=== PATIENT | male | born 1970 | race Caucasian/White ===

== ENCOUNTER → 2019-10-14 14:26 | Outpatient (CLI) | payer OTHER, SELFPAY ==
[2019-10-14 16:09] LABS: Alanine Aminotransferase 78 IU/L (<50); Albumin 4.4 g/dL (3.5-5.0); Albumin Globulin Ratio 1.5 (1.0-2.8); Alkaline Phosphatase 81 U/L (38-126); Aspartate Aminotransferase 50 IU/L (17-59); Bilirubin Total 0.5 mg/dL (0.2-1.3); Bilirubin Unconjugated 0.4 mg/dL (0.0-1.1); Globulin 2.9 g/dL (1.7-4.1); HEMOLYSIS < 15 (0-50); Total Protein 7.3 g/dL (6.3-8.2)
[2019-10-14 16:40] LABS: Hepatitis B Surface Antigen NEGATIVE s/c (NEGATIVE)
[2019-10-14 17:13] LABS: HEMOLYSIS < 15 (0-50); Iron 103 ug/dL (49-181)
[2019-10-14 17:26] LABS: Percent Iron Saturation 28 % (20-50); Total Iron Binding Capacity 368 ug/dL (261-462); Transferrin 316 mg/dL (206-381)
[2019-10-16 15:25] LABS: Ceruloplasmin 24 mg/dL (18-36)
[2019-10-17 07:40] LABS: Alpha 1 Anti Trypsin 139 mg/dL (83-199)
[2019-10-17 10:37] LABS: Anti Mitochondrial ABY IGG < 20.1 Units (< 20.1)
[2019-10-17 14:15] LABS: Hepatitis A Antibody Total Reactive (Nonreactive); Hepatitis B Surf AB Imm QUANT 30 mIU/mL (> 9)
== END ==
PROVIDERS: Referring Provider Internal Medicine Gastroenterology; Visit Provider Internal Medicine Gastroenterology
DX: R74.0 Nonspecific elevation of levels of transaminase and lactic acid dehydrogenase [LDH] (principal)
CPT/HCPCS: 36415; 80076; 82103; 82390; 82728; 83516; 83540; 83550; 86255; 86706; 86708; 87340

== ENCOUNTER → 2020-05-30 08:56 | Outpatient (CLI) | payer OTHER, SELFPAY ==
[2020-05-31 20:41] LABS: COVID19 Sendout Not Detected (Not Detect)
== END ==
PROVIDERS: Referring Provider Internal Medicine Gastroenterology; Visit Provider Nurse Practitioner
DX: Z11.59 Encounter for screening for other viral diseases (principal)
CPT/HCPCS: 87635

== ENCOUNTER 2020-06-02 08:31 | Day surgery (SDC) | payer OTHER, SELFPAY ==
[2020-06-02] VITALS (7 sets, daily range): BP systolic 115–142; BP diastolic 82–94; PULSE 66–84; RESP 12–19; TEMP 36.3–36.9; O2SAT 93–98; BMI 31.4
--- NOTE | 2020-06-02 | PATH_ITS ---
[facility] Accession Number: [id number] . 01 Material submitted: . colon - ASCENDING COLON POLYP . 01 Clinical history: . SDC . 02 Diagnosis: Ascending Colon, Polyp, Biopsy: Tubular adenoma. [facility] 06/04/2020 1637 Local . 02 Electronically signed: . Patience Jones MD, Pathologist NPI- [id number] . 01 Gross description: . The specimen is received in formalin, labeled ascending colon polyp and consists of a 0.3 x 0.3 x 0.3 cm luis fragment of soft tissue, which is entirely submitted in cassette A1. ([id number]) /[facility] 06/03/2020 1518 Local . 02 Pathologist provided ICD-10: D12.2 . 02 CPT . 232609 Performed at: 01 [facility] [address] [id number] MD Clark Conley MD Phone: [phone] Performed at: 02 [facility] [address] [place], [place] [id number] MD Patience Jones MD Phone: [phone]
--- NOTE | 2020-06-02 07:54 | PM.HP.1 ---
History of Present Illness History of Present Illness Date Patient Seen: 06/02/20 Chief complaint: SDC Narrative: 50-year-old male who I had seen in October 2019 for reflux and rectal bleeding. He is here for colonoscopy to further evaluate his rectal bleeding. He is Patient History Medical History (Updated 06/02/20 @ 08:57 by Bev Sidhu RN) Anal fissure (Acute) Elevated ALT measurement (Acute) GERD (gastroesophageal reflux disease) (Acute) Hiatal hernia (Acute) History of back pain (Acute) Rectal bleeding (Acute) Surgical History (Updated 06/02/20 @ 07:23 by Bev Sidhu RN) H/O vasectomy (Acute) History of esophagogastroduodenoscopy (EGD) (Acute) Meds Home Medications and Allergies Home Medications Medication Instructions Recorded Confirmed Type omeprazole 20 mg PO DAILY 06/02/20 06/02/20 History Allergies Allergy/AdvReac Type Severity Reaction Status Date / Time No Known Drug Allergies Allergy Verified 06/02/20 08:46 Exam Narrative Exam Narrative: General: Patient is obese, not in apparent distress Cardiovascular: Regular rate and rhythm, no murmurs, rubs, or gallops; no evidence of edema; no palpable abdominal aortic aneurysm Gastrointestinal: Normoactive bowel sounds, soft, nontender, nondistended, no rebound tenderness, no hepatosplenomegaly, no evidence of hernia Assessment & Plan Assessment & Plan narrative: 50-year-old male with a history of rectal bleeding who is here for further evaluation by means of colonoscopy Regarding the procedure(s), the risks and potential complications, benefits, and alternatives (including not doing the procedure) were discussed with the patient. The risks include but are not limited to bleeding, splenic injury, infection, perforation which may require surgical intervention, missed lesions, and adverse reactions to sedative medicines. After a question and answer period, the patient agreed to proceed with the procedure(s) and gives informed consent.
[2020-06-02] MEDS: SODIUM CHLORIDE 0.9% 1,000 ML 70 ML IV (08:44)
--- NOTE | 2020-06-02 09:07 | P.OP.ENDO_ITS ---
Operative Date/Time/Diagnoses Date of procedure: 06/02/20 Procedure Notes Procedure in detail: Surgeon: Aries Rios MD Procedure: Colonoscopy with polypectomy Preoperative diagnosis: Rectal bleeding Postoperative diagnosis: Ascending colon polyp status post polypectomy, grade 2 internal hemorrhoids Medications: Conscious sedation using 6 mg IV of Midazolam and 150 mcg IV of Fentanyl Preanesthesia Assessment An H and P was performed/updated and the Px?s ASA class is 2. The procedure was discussed in detail with the patient. The potential risks and complications including infection, bleeding, missed lesions, perforation, need for surgery in case of perforation, prolonged hospital stay, and were explained. A brief question and answer period was allotted and once all questions were answered, informed consent was obtained. The patient was brought back to the procedure room and placed on standard monitoring. The patient?s vital signs were monitored continuously throughout the entire procedure. Prior to starting, a timeout was performed to confirm the patient?s identity, allergies, medications, and procedure. Procedure in detail The patient was placed in left lateral decubitus position and once adequate sedation was obtained a HARRIET was performed. The digital rectal examination did not reveal any palpable lesions. The tip of the colonoscope was placed in the anal canal and advanced without difficulty all the way to the cecum which was identified by the appendiceal orifice and the ileocecal valve. Careful examination of all isaacs of the colon was performed with irrigation of any residual stool. In the ascending colon, a 2 mm sessile polyp was removed by means of cold Jumbo forceps. Resection and retrieval was complete with minimal bleeding Retroflexion was performed in the rectum which revealed grade 2 internal hemorrhoids. This was also visualized on forward viewing position The patient tolerated the procedure well and will be brought back to the recovery area to be discharged once criteria are met. The prep was judged to be good and adequate to identify polyps less than 5 mm. The withdrawal time was 8 minutes. The total physician intraservice time was 16 minutes. Complications There were no complications and estimated blood loss was minimal. Recommendations: Resume previous diet Continue outPx medications Consider restarting nitroglycerin ointment 0.125% per rectum 2 to 3 times a day for the next 2 months if you are still having anal pain Citrucel powder 2 tbsp twice daily for the next 3-4 weeks and titrate down slowly to maintain optimal stool consistency and frequency (approximately 1 daily bowel movement) Follow up pathology results Repeat colonoscopy in 5 or 7 or 10 years depending on pathology results Call our office ([facility]) to schedule follow-up with me. You will need repeat liver tests prior to your next visit to compare with your last labs in October 2019 An emergency contact number was given to the patient for any complications related to the procedure
[2020-06-02] MEDS: MIDAZOLAM 5 MG/5 ML VIAL IV (09:15)
[2020-06-02] MEDS: fentaNYL 250 MCG/5 ML INJ IV (09:15)
--- NOTE | 2020-06-02 10:05 | SUR.PHASEI ---
Report to JUANA Pablo pt transferred to pacu2 in stable condition
== END 2020-06-02 10:16 | disposition home or self-care (01) ==
PROVIDERS: PCP Internal Medicine; Referring Provider Internal Medicine Gastroenterology; Visit Provider Internal Medicine Gastroenterology
PROC: 0DJD8ZZ Inspection of Lower Intestinal Tract, Via Natural or Artificial Opening Endoscopic (ICD-10-PCS; CPT 45378; principal; 2020-06-02 09:30)
DX: K62.5 Hemorrhage of anus and rectum (principal); K64.0 First degree hemorrhoids; D12.2 Benign neoplasm of ascending colon
CPT/HCPCS: 45380; J2250; J3010